=== PATIENT | female | born 1990 | race African-American/Black ===

== ENCOUNTER 2017-02-16 09:25 | Emergency (ER) | payer OTHER ==
[~2017-02-16] VITALS: Ht 195.6 cm; Wt 97.5 kg
[~2017-02-16 09:25] MED LIST: AZITHROMYCIN 2250 MG PO; FLAGYL500 MG PO; PREDNISONE 10 M10 M1 PO; PROAIR HFA8.5 GM IH; TESSALON PERLE100 MG PO; TOPROL XL25 MG PO
[2017-02-16] MEDS ORDERED: REGLAN 10 MG TA10 MG PO (11:01)
[2017-02-16] MEDS ORDERED: IBUPROFEN 600600 M1 PO (11:02)
[2017-02-16 11:43] VITALS: BP 154/85
== END 2017-02-16 11:02 | disposition home or self-care (01) ==
LOC: ER 09:25
DX: F07.81 Postconcussional syndrome (principal); Q87.40 Marfan syndrome, unspecified; F12.10 Cannabis abuse, uncomplicated; Z90.89 Acquired absence of other organs; Z87.891 Personal history of nicotine dependence

== ENCOUNTER 2017-05-17 14:06 | Emergency (ER) | payer OTHER ==
[~2017-05-17] VITALS: Ht 195.6 cm; Wt 97.5 kg
[~2017-05-17 14:06] MED LIST changes: +IBUPROFEN 600600 M1 PO; +REGLAN 10 MG TA10 MG PO
[2017-05-17] MEDS ORDERED: LOPRESSOR50 PO (14:38)
[2017-05-17] MEDS ORDERED: FLONASE 0.05%50 MCG NASAL (15:21)
[2017-05-17] MEDS ORDERED: TESSALON PERLE100 MG PO (15:21)
[2017-05-17 15:34] VITALS: BP 126/92
== END 2017-05-17 15:34 | disposition home or self-care (01) ==
LOC: ER 14:06
DX: J20.9 Acute bronchitis, unspecified (principal); F12.10 Cannabis abuse, uncomplicated; Z98.890 Other specified postprocedural states; Z87.891 Personal history of nicotine dependence